=== PATIENT | male | born 1965 | race Caucasian/White ===

== ENCOUNTER → 2017-01-03 | Outpatient (CLI) | payer BC, OTHER ==
[~2017-01-03] VITALS: Ht 185.4 cm; Wt 99.3 kg
[~2017-01-03] MED LIST: ADDERALL 20 MG20 MG PO; BRINTELLIX20 MG PO; FLUOXETINE HCL40 MG PO; IBUPROFEN 800800 M1 PO; LISINOPRIL-HCT1 EAC2 PO; METHADONE HCL5 MG PO; NABUMETONE 750750 M1 PO; OXYCODONE HCL E10 MG PO; PERCOCET 10-321 EAC1 PO; PROZAC10 MG PO; TRAZODONE HCL100 MG PO; ZOCOR20 MG PO; ZOLPIDEM TARTRA10 MG PO
--- NOTE | ~2017-01-03 | HPC ---
[facility] [place] [address] PAIN MANAGEMENT CONSULTATION Name: BRIANDANUPUR Campos [id number] Admission: 01/03/17 Attend Phys: Edil Otoole DO Discharge: Date of : 69 Report #: [id number] THIS REPORT FOR: //name// CC: Mishel Otoole HISTORY OF PRESENT ILLNESS: The patient is a 51-year-old gentleman, seen in consultation at the request of LOUIS Jack for assistance with management of chronic pain syndrome. The patient states he had carpal tunnel surgery along with cubital tunnel surgery in September of [address] [place] Unfortunately developed a nonhealing wound of the left carpal tunnel site. He had multiple debridement surgeries for infection and was ultimately transferred to Dr. Victor Manuel Salguero' care at wound clinic. After multiple interventions, the left wrist wound healed, and he was discharged from Dr. Salguero' care in April of 2016, but he had titrated up to a fairly significant dose of opiate. Apparently, he was on Duragesic at 100 mcg. He was referred to Dr. Stephen Friedman, who rotated the patient to methadone and wean off of opiates. Apparently, he tried multiple membrane stabilizing agents including calcium channel membrane stabilizing agents, gabapentin and Lyrica, along with Lamictal, they all had intolerable side effects. (The patient was not aware of having tried oxcarbazepine or carbamazepine/Trileptal or Tegretol). He incidentally notes that he did have a rotator cuff tear, and did have left arthroscopic rotator cuff repair surgery last month, that seems to be healing well. Under Dr. Stephen Friedman's care along with failing multiple neuropathic membrane stabilizing agents, he ultimately had a spinal cord stimulator trial with implantation of high frequency cervical spinal cord stimulator. This was in July of 2016. Per the patient, unfortunately at the spinal cord stimulator generator site, in the right flank, he has had increasing pain compatible with history of renal lithiasis. The renal lithiasis, has been consistently ruled out. Per the patient, he saw Dr. Friedman, numerous times throughout August and September. He had Nevro stimulator 3 times, all with nominal efficacy. Currently, notes he has pain in the distal left forearm and hand with paresthesia in his fingers. He has light touch allodynia. States palmar aspect of his hand feels like it "bites". Interestingly, he notes pain is "tolerable" with activity, but when he sits down to rest, pain becomes more problematic. Clearly, there seems to be a component of distraction, helping him manage chronic pain syndrome. The patient rates pain at "10+" on a 0-10 visual analog scale. REVIEW OF SYSTEMS: Complete review of systems attached to the chart and was gone over with the patient. He is . Denies tobacco use, states he drinks alcohol socially. Prior history of cocaine use in the distant past, the [address] [address] PAIN MANAGEMENT CONSULTATION Name: NUPUR LAMAR JR Room #: REG RUDY Bee#: [id number] Admission: 01/03/17 Attend Phys: Edil Otoole DO Discharge: Date of : 69 Report #: [id number] patient states he has been "clean" for 16 years. He did show rapid escalation of opiates in the past year per the medical record. History of hypertension, treated with lisinopril and hydrochlorothiazide. Though he did not take those medications this morning. Dyslipidemia for which he takes simvastatin. Chronic depression for which he currently takes fluoxetine and Trintellix. The patient claims that these were started simply in the past year, due to reactive depression secondary to his chronic pain. He has had chronic insomnia which predated the current pain generator, currently he takes zolpidem and trazodone for this. He states, he takes Adderall 20 mg daily, and he has taken some form of ADD type drug "all his life". He started may be in fourth grade. He has had left total knee arthroplasty. The aforementioned recent left shoulder surgery and the aforementioned left cubital tunnel and left carpal tunnel surgery with multiple surgeries, subsequent to the carpal tunnel surgery due to infection. 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 He has had to work less this past year due to pain. Pain impact score is fairly high, averaging 60/70. PHYSICAL EXAMINATION: GENERAL: Reveals 6 feet 2 inches, 215-pound gentleman, BMI is noted on EMR. Blood pressure is elevated today at 165/106, pulse 107, respirations are 14. Again, the patient notes that he did not take his antihypertensives today, or apparently for the last couple of days. Cervical range of motion is full, though extension does exacerbate some neck and left shoulder pain. Left shoulder has a modestly decreased range of motion and some subjective pain. Again, he is 1 month status post rotator cuff repair. Left wrist shows significant limitation to extension. He has a scar in the left wrist, ulnar aspect. Hyperpathia about the wrist, slight decreased left hypothenar eminence, middle finger in the left hand has minimal flexion capacity. Hand grasp is diminished overall. HEART: Regular and rhythmical without murmur. LUNGS: Clear to auscultation. ABDOMEN: Unremarkable. He does have some right flank pain over the IPG generator. No discrete costovertebral angle tenderness is noted. Lower extremity strength is symmetric. Gait is tandem. DIAGNOSTIC STUDIES: There are no recent diagnostic studies available for evaluation at this time. ASSESSMENT: Symptomatic left wrist pain and neuropathic pain component, requiring complex medication management in the patient who has had a very stormy course in the past year. He does have a high frequency spinal cord stimulator in place with really no efficacy. Per the patient in fact, he has not used it for the past 2 weeks. RECOMMENDATION: [address] [address] PAIN MANAGEMENT CONSULTATION Name: NUPUR LAMAR JR Room #: REG RUDY Bee#: [id number] Admission: 01/03/17 Attend Phys: Edil Otoole DO Discharge: Date of : 69 Report #: [id number] 1. I recommend the patient at least keep the spinal cord stimulator charged once a week, even though if he wants to keep it off for a few months. 2. We discussed at length frustration in utility of using short acting opiates for chronic pain syndrome. We have elected to start him back on methadone 5 mg tablets 3 times a day with 2 at bedtime (one 5 mg tablet in the morning, one 5 mg tablet at some 8 hours later, and two 5 mg tablets at bedtime). I have taken the liberty of writing for 30 days of this prescription (120 tablets). Follow up in 3-4 weeks to reevaluate. We may consider a trial of sodium channel membrane stabilizing agent (Trileptal?). The patient does score high on the opiate risk assessment tool. Per notes of Dr. Friedman's office, he scored 11 today, he only admits to history of illegal drug use, scoring of 4 points, history of attention deficit disorder scoring 2 points, history of depression for total 7 points. Again, he has scored 11 on a prior ORA Tool for, I believe, having a family history of prescription drug abuse?, and/or personal use of prescription drug abuse. Nonetheless, pain impact score is fairly high at 55/70. I did enter into an opiate consent to treat contract with the patient today. I told him we will try and use some medications that may diminish his subjective pain symptoms and keep him functional, in no way shape or form, where we going to make him "pain free". I suggested in a few months, we might try reprogramming the spinal cord stimulator. If the IP generator remains problematic; however, he may want to contact Dr. Friedman regarding getting it explanted. Discharged in good and stable condition. Follow up in 3-4 weeks to evaluate efficacy of medication management. <ELECTRONICALLY SIGNED> By: Edil Otoole DO 01/08/17 0758 1222 Edil Otoole DO /nt
[2017-01-03 10:06] VITALS: BP 165/106
== END ==
LOC: PAIN 07:01
DX: M25.532 Pain in left wrist (principal); G62.9 Polyneuropathy, unspecified; I10 Essential (primary) hypertension; Z96.89 Presence of other specified functional implants; F14.21 Cocaine dependence, in remission; F10.21 Alcohol dependence, in remission; Z87.442 Personal history of urinary calculi; Z96.652 Presence of left artificial knee joint

== ENCOUNTER → 2017-02-21 | Outpatient (CLI) | payer BC, OTHER ==
[~2017-02-21] VITALS: Ht 185.4 cm; Wt 86.6 kg
[~2017-02-21] MED LIST changes: +LIDODERM 5%1 PATC1 TRANSDERM
[2017-02-21 10:22] VITALS: BP 116/81
== END | disposition home or self-care (01) ==
LOC: PAIN 01-31 06:49
DX: G89.4 Chronic pain syndrome (principal); M79.602 Pain in left arm; R07.89 Other chest pain; F11.20 Opioid dependence, uncomplicated; Z98.890 Other specified postprocedural states; Z87.09 Personal history of other diseases of the respiratory system; Z88.0 Allergy status to penicillin

== ENCOUNTER → 2017-03-21 | Outpatient (CLI) | payer BC, OTHER ==
[~2017-03-21] VITALS: Ht 193 cm; Wt 83.4 kg
[~2017-03-21] MED LIST changes: +CEFDINIR300 MG PO; +DICLOFENAC SOD100 GM TP; +FLECTOR PATCH1 EA TP
--- NOTE | ~2017-03-21 | HPC ---
[address] [place] [address] PAIN MANAGEMENT CONSULTATION Name: NUPUR LAMAR JR [facility]: [facility] [id number] Admission: 03/21/17 Attend Phys: Edil Otoole DO Discharge: Date of : 69 Report #: [id number] THIS REPORT FOR: //name// CC: Mishel Otoole The patient is a 51-year-old gentleman, prior seen in the pain clinic, 02/21/2017 for neuropathic pain in the left upper extremity. The patient had prior been seen on 01/03/2017. That was his initial consultation. He had had cubital tunnel surgery in September 2015, developed nonhealing wound in the left carpal tunnel site. Multiple debridement surgeries with Dr. Rubio titrated up to fairly high dose of opiates. He was referred to Dr. Friedman who had rotated the patient's methadone and weaned off of opiates. They had tried a spinal cord stimulator, which was ultimately implanted in July 2016. The patient had an ongoing pain in the right flank at the stimulator site. We reviewed all the medical records at that time. The patient was not using the stimulator as he felt it was not efficacious. He was using short acting opiates with little efficacy. He had failed multiple membrane stabilizing agents. He did have a high opiate risk assessment to a score of 11. I elected to continue patient on methadone 10 mg t.i.d. Follow up, 02/21/2017, he felt symptoms were improved with the medication, though he had had significant interval history when we saw him last time. 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 I continued methadone 10 mg t.i.d. at that time. He returns to pain clinic today. I had a moderately prolonged visit with the patient from 10:21-10:50. Greater than 50% of this 25+ minute visit was spent counseling the patient. He tells me he has some ongoing right elbow pain, which is new with his chronic left wrist pain. He is following up with his surgeon regarding this new right wrist pain, though it appears to be more lateral epicondylitis. Nonetheless, he is continuing with diclofenac topically (Voltaren gel), Lidoderm patch to that right forearm and methadone 10 mg t.i.d. He did have hydrocodone prescription from a surgeon. I talked today at length about entry into an opiate consent to treat contract with the patient, which we did accomplish today. The patient understands he can get no more opiates from mother treating physicians. We will check a buccal swab at next visit to ensure that there is methadone alone. We reviewed the fact that opiate medications are being used to provide analgesia adequate to support activities of daily living, not attempting to achieve a specific pain score on the 0-10 Visual Analog Scale. The current opiate medications are providing sufficient analgesia to allow the patient to participate in activities of daily living. The patient is not exhibiting any aberrant behavior suggestive of drug diversion. [place] [address] PAIN MANAGEMENT CONSULTATION Name: NUPUR LAMAR JR Room #: JOHN Bee#: [id number] Admission: 03/21/17 Attend Phys: Edil Otoole DO Discharge: Date of : 69 Report #: [id number] adverse reactions to medications. The patient is not suffering from daytime somnolence or mental acuity changes. The patient is managing opiate-induced constipation with appropriate [id number] agents and dietary considerations. The patient was counseled on concern for caution with operating a motor vehicle while using opiate medications. A physical exam was performed and the patient's functional status was evaluated. All patients with back pain were advised against the bed rest greater than 4 days and were advised to return to normal activities. Pain score assessment was noted and the treatment plan was reviewed with the patient. All current medications, both prescribed and OTC were reviewed and reconciled on the electronic medical record. Tobacco screening was accomplished and smoking cessation was advised when indicated. BMI was noted and diet/exercise modification was recommended for all patients following outside normal parameters. I reviewed with the patient today their responsibilities to safeguard prescription medications, reviewed their responsibility to utilize medications only as prescribed by the physician. They are to seek and receive pain medications only from 1 physician group ( [facility]). They are to use 1 pharmacy and keep the clinic informed if they change pharmacies. Their responsibilities include making followup visits in a timely fashion and to avoid abrupt discontinuation of medication usage. Their responsibilities further include bringing their medications (bottles from the pharmacy with residual pills) to the visit for possible confirmation of pill counts and the patient understands it is their responsibility to submit to random drug screens to ensure both that the medications prescribed are present, and that no other controlled substances are present. All prescriptions provided today were generated electronically. PHYSICAL EXAMINATION: Shows 51-year-old gentleman with BMI of 22.4 kilograms per meter squared. Vital signs stable. He has Lidoderm patch on the lateral epicondyle on the right arm. Left arm shows diminished range of motion in the wrist and significant scarring compatible with his prior surgical histories. ASSESSMENT: Neuropathic pain, primary right wrist pain requiring complex medication management, stable on methadone 10 mg 3 times a day, taken liberty of renewing this prescription for 30 days. We started opiate consent to treat contract. Follow up in 30 days. <ELECTRONICALLY SIGNED> By: Edil Otoole DO 03/24/17 1427 1222 1329 Edil Otoole DO /nt
[2017-03-21 10:08] VITALS: BP 119/87
== END | disposition home or self-care (01) ==
LOC: PAIN 07:41
DX: M25.531 Pain in right wrist (principal); F11.20 Opioid dependence, uncomplicated; Z98.890 Other specified postprocedural states; Z88.0 Allergy status to penicillin; Z79.899 Other long term (current) drug therapy

== ENCOUNTER → 2017-05-01 | Outpatient (CLI) | payer BC, OTHER ==
[~2017-05-01] VITALS: Ht 185.4 cm; Wt 83.0 kg
[~2017-05-01] MED LIST changes: +CARBAMAZEPINE200 M2 PO
--- NOTE | ~2017-05-01 | HPC ---
[facility] [place] [address] PAIN MANAGEMENT CONSULTATION Name: NUPUR LAMAR JR Room #: REG [facility] [id number] Admission: 05/01/17 Attend Phys: Edil Otoole DO Discharge: Date of : 69 Report #: [id number] THIS REPORT FOR: //name// CC: Mishel Otoole DATE OF SERVICE: 05/01/2017 DATE OF SERVICE: 05/01/2017 HISTORY OF PRESENT ILLNESS: The patient is a pleasant 51-year-old gentleman being treated for RSD left upper extremity neuropathic pain requiring high risk complex medication management. Last seen in the pain clinic 03/21/2017, now approximately 5 weeks out. I continued patient on methadone 5 mg, 2 tablets in the morning, 1 at noon, 1 at night. The patient returns to pain clinic today. We had a prolonged visit from 8:00 a.m. to 8:25 reviewing interval history. The patient had been admitted to the hospital again for ongoing chest pain. In the interval from the initial to the last visit, he had been admitted to the hospital, was felt to be an anastomotic leak his Melodie fundoplication. He developed a spontaneous pneumothorax, had a chest tube at that time. He was admitted since the last visit at [facility], with ongoing chest pain. They did an EGD, it sounds like he was diagnosed with helicobacter pylori infection. He is being treated for this appropriately. Unfortunately, he did run out of his methadone. As scheduled last visit, we will repeat buccal drug swab though it may be negative for opiates. He notes, out of methadone, pain is significantly increased. It is in the left elbow, deep needle pain, rates it at 10 on VAS. While he is in the hospital, I did talk to his treating physician and suggested we start on oxcarbazepine. He is currently taken this 200 mg b.i.d., which he thinks is efficacious. We reviewed the fact that opiate medications are being used to provide analgesia adequate to support activities of daily living, not attempting to achieve a specific pain score on the 0-10 Visual Analog Scale. The current opiate medications are providing sufficient analgesia to allow the patient to participate in activities of daily living. The patient is not exhibiting any aberrant behavior suggestive of drug diversion. The patient is not having any adverse reactions to medications. The patient is not suffering from daytime somnolence or mental acuity changes. The patient is managing opiate-induced constipation with appropriate fbyj-vzy-hwinhfv agents and dietary [address] [address] PAIN MANAGEMENT CONSULTATION Name: BRIANDANUPURISAURO Campos JR Room #: REG [facility]#: [id number] Admission: 05/01/17 Attend Phys: Edil Otoole DO Discharge: Date of : 69 Report #: [id number] considerations. The patient was counseled on concern for caution with operating a motor vehicle while using opiate medications. A physical exam was performed and the patient's functional status was evaluated. All patients with back pain were advised against the bed rest greater than 4 days and were advised to return to normal activities. Pain score assessment was noted and the treatment plan was reviewed with the patient. All current medications, both prescribed and OTC were reviewed and reconciled on the electronic medical record. Tobacco screening was accomplished and smoking cessation was advised when indicated. BMI was noted and diet/exercise modification was recommended for all patients following outside normal parameters. I reviewed with the patient today their responsibilities to safeguard prescription medications, reviewed their responsibility to utilize medications only as prescribed by the physician. They are to seek and receive pain medications only from 1 physician group ( [facility]). They are to use 1 pharmacy and keep the clinic informed if they change pharmacies. Their responsibilities include making followup visits in a timely fashion and to avoid abrupt discontinuation of medication usage. Their responsibilities further include bringing their medications (bottles from the pharmacy with residual pills) to the visit for possible confirmation of pill counts and the patient understands it is their responsibility to submit to random drug screens to ensure both that the medications prescribed are present, and that no other controlled substances are present. All prescriptions provided today were generated electronically. PHYSICAL EXAMINATION: Shows 51-year-old gentleman, BMI is 24.1 kilograms per meter squared. Blood pressure is elevated today 156/103, pulse 96, respirations are 14 (the patient states he did take his lisinopril, hydrochlorothiazide, this morning). I believe hypertension may be secondary to simply the pain. He is alert and oriented to person, place, and time, judged to be a reasonable historian. Cranial nerves 2-12 are grossly intact. Cervical range of motion is full. Again, ongoing pain in his left elbow extending into the forearm. Range of motion is modestly limited. Does have some ongoing contralateral right-sided lateral epicondylitis. This has improved a little bit from last visit. MEDICATIONS: His medicine list was reconciled, he also takes diclofenac, fluoxetine, Trintellix, zolpidem at bedtime, trazodone, simvastatin, and Adderall. ASSESSMENT: 1. Neuropathic pain, left upper extremity, status post cubital tunnel transposition with subsequent surgical site infection and ongoing neuropathic pain. 2. Multiple comorbidities including significant psychiatric diagnosis on multiple central acting agents as noted in the body of the dictation, fluoxetine, Trintellix, zolpidem, trazodone and Adderall. [facility] [address] [place] [address] PAIN MANAGEMENT CONSULTATION Name: NUPUR LAMAR Room #: REG RUDY Bee#: [id number] Admission: 05/01/17 Attend Phys: Edil Otoole DO Discharge: Date of : 69 Report #: [id number] RECOMMENDATION: Long discussion with the patient today about therapeutic option: 1. We will check a buccal swab today, again will likely be positive for amphetamine, may well be negative for methadone, it should not be positive for any other opiates. 2. Renew methadone 5 mg 2 in the morning, 1 at noon, 1 at night. I did take the liberty of renewing his carbamazepine (Tegretol) 200 mg b.i.d. Follow up in 30 days for reevaluation. Discharged in good and stable condition after another prolonged visit, approximately 25 minutes was spent with patient, 50% of this time spent counseling the patient, reviewing interval history and discussing therapeutic options. <ELECTRONICALLY SIGNED> By: Edil Otoole DO 05/01/17 1326 0819 0930 Edil Otoole DO /nt
[2017-05-01 07:57] VITALS: BP 156/103
== END | disposition home or self-care (01) ==
LOC: PAIN 04-17 06:56
DX: Z76.0 Encounter for issue of repeat prescription (principal); G90.512 Complex regional pain syndrome I of left upper limb; Z79.891 Long term (current) use of opiate analgesic; Z98.890 Other specified postprocedural states; Z88.0 Allergy status to penicillin; Z79.899 Other long term (current) drug therapy

== ENCOUNTER → 2017-05-26 | Outpatient (CLI) | payer BC, OTHER ==
[~2017-05-26] VITALS: Ht 185.4 cm; Wt 88.0 kg
[~2017-05-26] MED LIST changes: +OXCARBAZEPINE150 MG PO
--- NOTE | ~2017-05-26 | HPC ---
[facility] [place] [address] PAIN MANAGEMENT CONSULTATION Name: NUPUR LAMAR JR Room #: REG [facility]#: [id number] Admission: 05/26/17 Attend Phys: Edil Otoole DO Discharge: Date of : 69 Report #: [id number] THIS REPORT FOR: //name// CC: Mishel Otoole The patient is a 51-year-old gentleman, well known to pain clinic, being treated for RSD, left upper extremity, history of spontaneous pneumothorax, requiring high risk complex medication management. He is status post Melodie fundoplication for GERD. Last visit on 05/01/2017, we continued the patient's oxcarbazepine 200 mg b.i.d. He has increased it to t.i.d., methadone 5 mg 1 in the morning, 1 at noon and 2 at night. He returns to pain clinic today, while he notes his pain is neuropathic pain, left upper extremity, well controlled as it has ever been. He unfortunately is developing some "dry heaves" with oxcarbazepine. He does feel, however, it has been efficacious medication for him. The patient does note he has some ongoing pain, left chest where he had the chest tubes for his pneumothorax. Otherwise, doing reasonably well. PHYSICAL EXAMINATION: Shows an alert and oriented 51-year-old gentleman, left arm accesses pretty good range of motion at this point. Hyperpathia and allodynia are diminished. Symmetric extrusion, chest wall. Breath sounds are clear. Little tenderness over the left chest tube site, though it is improving. Vital signs show modest hypertension. We reviewed the fact that opiate medications are being used to provide analgesia adequate to support activities of daily living, not attempting to achieve a specific pain score on the 0-10 Visual Analog Scale. The current opiate medications are providing sufficient analgesia to allow the patient to participate in activities of daily living. The patient is not exhibiting any aberrant behavior suggestive of drug diversion. The patient is not having any adverse reactions to medications. The patient is not suffering from daytime somnolence or mental acuity changes. The patient is managing opiate-induced constipation with appropriate vmrq-cah-jyoemwy agents and dietary considerations. The patient was counseled on concern for caution with operating a motor vehicle while using opiate medications. A physical exam was performed and the patient's functional status was evaluated. All patients with back pain were advised against the bed rest greater than 4 days and were advised to return to normal activities. Pain score assessment was noted and the treatment plan was reviewed with the patient. All current medications, both prescribed and OTC were reviewed and reconciled on the electronic medical record. Tobacco screening was accomplished and smoking [address] [address] PAIN MANAGEMENT CONSULTATION Name: NUPUR LAMAR Room #: REG Charis Bee#: [id number] Admission: 05/26/17 Attend Phys: Edil Otoole DO Discharge: Date of : 69 Report #: [id number] cessation was advised when indicated. BMI was noted and diet/exercise modification was recommended for all patients following outside normal parameters. I reviewed with the patient today their responsibilities to safeguard prescription medications, reviewed their responsibility to utilize medications only as prescribed by the physician. They are to seek and receive pain medications only from 1 physician group ( [facility]). They are to use 1 pharmacy and keep the clinic informed if they change pharmacies. Their responsibilities include making followup visits in a timely fashion and to avoid abrupt discontinuation of medication usage. Their responsibilities further include bringing their medications (bottles from the pharmacy with residual pills) to the visit for possible confirmation of pill counts and the patient understands it is their responsibility to submit to random drug screens to ensure both that the medications prescribed are present, and that no other controlled substances are present. All prescriptions provided today were generated electronically. A long discussion with the patient today about therapeutic option, he was seen from 8:00 to 8:30 a.m., greater than 50% of 30-minute visit was spent counseling the patient. Given the fact that calcium channel membrane stabilizing agents afforded no efficacy (having failed both Lyrica and gabapentin) and the fact that the sodium channel membrane stabilizing agent (carbamazepine) is affording some relief, I would like to continue that class of agent. We will try rotating from Tegretol to Trileptal, a similar sodium channel membrane stabilizing agent. He can switch simply from one to the other, we will write for 150 mg Trileptal tablets. Start 1 b.i.d. for 5 days and increase to either t.i.d. or 1 in the morning and 2 at night. I have taken the liberty of writing for 90 tablets. We will renew the methadone unchanged, 5 mg 120 tablets 1 in the morning, 1 at noon and 2 at night (although he has been actually taking 1-1/2 in the morning, 1 at noon and 1-1/2 at night). Follow him in 30 days for reevaluation. Discharged in good stable condition after moderately prolonged visit, spent counseling the patient, reviewing medication management and making appropriate medication management changes. If doing well at next visit, we may consider writing on a q.2 month cycle. We will likely want to get a buccal swab at that time, should be positive for methadone as the sole opiate and Trileptal metabolites as well as amphetamines (he takes Adderall from another provider for some adult ADD). [facility] [address] [place] [address] PAIN MANAGEMENT CONSULTATION Name: NUPUR LAMAR JR Room #: JOHN Bee#: [id number] Admission: 05/26/17 Attend Phys: Edil Otoole DO Discharge: Date of : 69 Report #: [id number] Direct patient consult time 08:00 - 08:30. <ELECTRONICALLY SIGNED> By: Edil Otoole DO 05/26/17 [id number] Edil Otoole DO /nt
[2017-05-26 08:16] VITALS: BP 143/91
== END | disposition home or self-care (01) ==
LOC: PAIN 07:03
DX: G90.512 Complex regional pain syndrome I of left upper limb (principal); K21.9 Gastro-esophageal reflux disease without esophagitis; I10 Essential (primary) hypertension; Z79.899 Other long term (current) drug therapy